=== PATIENT | female | born 1945 ===

== ENCOUNTER 2017-03-12 20:34 | Emergency (ER) | payer MEDICARE ==
[2017-03-12 20:34] VITALS: BMI 32.3
[2017-03-12 21:05] VITALS: BP 111/73; PULSE 80; RESP 18; TEMP 97.9; O2SAT 96
[2017-03-12] MEDS ORDERED: Iohexol 240 (50 ml) PO ONE (21:54)
[2017-03-12] MEDS ORDERED: Sodium Chloride 0.9% 1,000 ML IV STA (21:54)
--- NOTE | 2017-03-12 21:57 | ED PDOC ---
HPI: Abdomen Time Seen by Provider: 03/12/17 21:35 Chief Complaint (Nursing): Abdominal Pain Chief Complaint (Provider): abdominal pain History Per: Patient History/Exam Limitations: no limitations Onset/Duration Of Symptoms: Days (2) Current Symptoms Are (Timing): Still Present Location Of Pain/Discomfort: Diffuse Additional History Per: Patient Additional Complaint(s): 71 y/o female presents with diffuse abdominal pain x 2 days, worsening today. Patient reports multiple vomiting and diarrhea episodes, since resolved. Patient saw her PMD yesterday and was prescribed Ranitidine and Loperamide without improvement of pain. Denies fever, chest pain, shortness of breath, palpitations, urinary symptoms, recent travel, sick contacs Past Medical History Reviewed: Historical Data, Nursing Documentation, Vital Signs Vital Signs: Last Vital Signs Temp 97.9 F 03/12/17 20:59 Pulse 80 03/12/17 20:59 Resp 18 03/12/17 20:59 BP 111/73 03/12/17 20:59 Pulse Ox 96 03/12/17 21:57 - Medical History PMH: Anxiety, Arthritis (Osteoarthritis,), Depression, Gall Bladder Disease, Hypercholesterolemia, Migraine Denies: Asthma, Atrial Fibrillation, CHF, COPD, Diabetes, HTN, Chronic Kidney Disease - Surgical History Surgical History: Appendectomy, Cholecystectomy Denies: CABG, Pacemaker - Family History Family History: States: Unknown Family Hx Denies: CAD - Immunization History Hx Tetanus Toxoid Vaccination: No Hx Influenza Vaccination: No Hx Pneumococcal Vaccination: No - Home Medications Home Medications: Ambulatory Orders Medication Instructions Recorded Meclizine [Meclizine*] 25 mg PO Q12 06/17/13 Aspirin [Aspirin Chewable] 81 mg PO DAILY #0 chew 07/21/14 Alprazolam [Xanax] 0.25 mg PO PRN PRN 10/06/15 Escitalopram Oxalate [Escitalopram] 10 mg PO DAILY 10/06/15 Naproxen [Naprosyn] 500 mg PO Q12 10/06/15 Gabapentin [Neurontin] 300 mg PO TID 12/13/15 Metoprolol Succinate [Toprol XL] 25 mg PO DAILY 12/13/15 Pravastatin Sodium [Pravachol] 40 mg PO DAILY 12/13/15 Dicyclomine [Bentyl] 20 mg PO TID PRN #15 tab 03/13/17 - Allergies Allergies/Adverse Reactions: Allergies Allergy/AdvReac Type Severity Reaction Status Date / Time No Known Allergies Allergy Verified 03/12/17 20:59 Review of Systems ROS Statement: Except As Marked, All Systems Reviewed And Found Negative Gastrointestinal: Positive for: Abdominal Pain Physical Exam - Reviewed Nursing Documentation Reviewed: Yes Vital Signs Reviewed: Yes - Physical Exam Appears: Positive for: Well, Non-toxic, No Acute Distress Head Exam: Positive for: ATRAUMATIC, NORMAL INSPECTION, NORMOCEPHALIC Skin: Positive for: Normal Color Eye Exam: Positive for: Normal appearance ENT: Positive for: Normal ENT Inspection Cardiovascular/Chest: Positive for: Regular Rate, Rhythm Respiratory: Positive for: Normal Breath Sounds Gastrointestinal/Abdominal: Positive for: Bowel Sounds, Soft, Tenderness ( diffuse) Back: Positive for: Normal Inspection Extremity: Positive for: Normal ROM Neurologic/Psych: Positive for: Alert, Oriented - Laboratory Results Result Diagrams: 03/12/17 22:13 03/12/17 22:40 - ECG ECG: Positive for: Viewed By Me (reviewed by ED attending) ECG Rhythm: Positive for: Sinus Rhythm O2 Sat by Pulse Oximetry: 96 - Progress ED Course And Treament: labs, urine, CT abd/pelvis EXAM: CT Abdomen and Pelvis With Intravenous Contrast CLINICAL HISTORY: 71 years old, female; Pain; Abdominal pain; Generalized; Prior surgery; Surgery date: 6+ months; Surgery type: Gall bladder. Appendectomy; Additional info: Diffuse abd pain TECHNIQUE: Axial computed tomography images of the abdomen and pelvis with intravenous contrast. All CT scans at this facility use one or more dose reduction techniques, viz.: automated exposure control; ma/kV adjustment per patient size (including targeted exams where dose is matched to indication; i.e. head); or iterative reconstruction technique. Coronal and sagittal reformatted images were created and reviewed. CONTRAST: 90 mL of administered intravenously. COMPARISON: No relevant prior studies available. FINDINGS: Lower thorax: Minimal atelectasis/scarring. Small hiatal hernia. ABDOMEN: Liver: Unremarkable. No mass. Gallbladder and bile ducts: Cholecystectomy. Mild prominence of common bile duct. Pancreas: No ductal dilation. No mass. Spleen: No splenomegaly. Adrenals: No mass. Kidneys and ureters: No mass. No hydronephrosis. Stomach and bowel: No definite mural thickening. No obstruction. Appendix: No findings to suggest acute appendicitis. PELVIS: Bladder: Unremarkable. Reproductive: Unremarkable as visualized. ABDOMEN and PELVIS: Intraperitoneal space: No significant fluid collection. No free air Bones/joints: Degenerative changes of spine. No acute fracture. Soft tissues: Unremarkable. Vasculature: Mild atherosclerotic disease. No aneurysm. Lymph nodes: No pathologically enlarged lymph nodes. IMPRESSION: 1. No definite acute intraabdominal abnormality. 2. Incidental/non-acute findings are described above. Patient educated on findings, discharged with rx Bentyl. Advised fluids, bland diet. FOllow up PMD 2-3 days. Return precautions given. Disposition - Clinical Impression Clinical Impression: Gastroenteritis - Patient ED Disposition Is Patient to be Admitted: No Counseled Patient/Family Regarding: Studies Performed, Diagnosis, Need For Followup, Rx Given - Disposition Disposition: Routine/Home Disposition Time: 01:36 Condition: IMPROVED Prescriptions: Dicyclomine [Bentyl] 20 mg PO TID PRN #15 tab PRN Reason: Pain, Mild (1-3) Instructions: Gastroenteritis (ED) Forms: [employer] (Congolese) Print Language: THAI
[2017-03-12] MEDS ORDERED: Iohexol 240 (50 ml) ONE (22:22)
[2017-03-12 22:33] LABS: BASO % 0.5 % (0.0-2.0); EOS # 0.2 K/uL (0.0-0.7); EOS % 3.3 % (0.0-4.0); HEMOGLOBIN 14.3 g/dL (12.0-16.0); LYMPH # 1.5 K/uL (1.0-4.3); LYMPH % 25.3 % (20.0-40.0); MEAN CELL VOLUME 88.5 fl (81.0-99.0); MEAN CORPUSCULAR HEMOGLOBIN 30.1 pg (27.0-31.0); MEAN PLATELET VOLUME 7.8 fl (7.2-11.7); MONO # 0.4 K/uL (0.0-0.8); MONO % 7.3 % (0.0-10.0); NEUT # 3.8 K/uL (1.8-7.0); NEUT % 63.6 % (50.0-75.0); RBC 4.77 Mil/uL (3.80-5.20); RED CELL DISTRIBUTION WIDTH 13.3 % (11.5-14.5)
[2017-03-12 22:55] LABS: ALB/GLOB RATIO 1.1 (1.0-2.1); ALBUMIN 3.9 g/dL (3.5-5.0); ALT/SGPT 51 U/L (9-52); AST/SGOT 40 U/L (14-36); BLOOD UREA NITROGEN 16 mg/dl (7-17); CALCIUM 9.1 mg/dL (8.4-10.2); GFR AFRICAN-AMERICAN > 60; GFR NON-AFRICAN AMERICAN > 60; LIPASE 101 U/L (23-300)
[2017-03-12 23:40] LABS: SQUAMOUS EPITHIAL 2 /hpf (0-5); URINE BACTERIA RARE (<OCC); URINE BILIRUBIN NEGATIVE (NEGATIVE); URINE BLOOD NEGATIVE (NEGATIVE); URINE CLARITY SLIGHTY-CLOUDY (Clear); URINE COLOR YELLOW (YELLOW); URINE GLUCOSE (UA) NEG (Normal); URINE LEUKOCYTE ESTERASE TRACE Leu/uL (Negative); URINE NITRATE NEGATIVE (NEGATIVE); URINE PROTEIN NEGATIVE (NEGATIVE); URINE UROBILINOGEN 0.2-1.0 mg/dL (0.2-1.0)
[2017-03-13] MEDS ORDERED: Iohexol 300 100 ML IJ ONE (00:41)
[2017-03-13] MEDS ORDERED: Sodium Chloride 0.9% 50 ML IV ONE (00:41)
--- NOTE | 2017-03-13 01:21 | CT ---
EXAM: CT Abdomen and Pelvis With Intravenous Contrast CLINICAL HISTORY: 71 years old, female; Pain; Abdominal pain; Generalized; Prior surgery; Surgery date: 6+ months; Surgery type: Gall bladder. Appendectomy; Additional info: Diffuse abd pain TECHNIQUE: Axial computed tomography images of the abdomen and pelvis with intravenous contrast. All CT scans at this facility use one or more dose reduction techniques, viz.: automated exposure control; ma/kV adjustment per patient size (including targeted exams where dose is matched to indication; i.e. head); or iterative reconstruction technique. Coronal and sagittal reformatted images were created and reviewed. CONTRAST: 90 mL of [id number] administered intravenously. COMPARISON: No relevant prior studies available. FINDINGS: Lower thorax: Minimal atelectasis/scarring. Small hiatal hernia. ABDOMEN: Liver: Unremarkable. No mass. Gallbladder and bile ducts: Cholecystectomy. Mild prominence of common bile duct. Pancreas: No ductal dilation. No mass. Spleen: No splenomegaly. Adrenals: No mass. Kidneys and ureters: No mass. No hydronephrosis. Stomach and bowel: No definite mural thickening. No obstruction. Appendix: No findings to suggest acute appendicitis. PELVIS: Bladder: Unremarkable. Reproductive: Unremarkable as visualized. ABDOMEN and PELVIS: Intraperitoneal space: No significant fluid collection. No free air. Bones/joints: Degenerative changes of spine. No acute fracture. Soft tissues: Unremarkable. Vasculature: Mild atherosclerotic disease. No aneurysm. Lymph nodes: No pathologically enlarged lymph nodes. IMPRESSION: 1. No definite acute intraabdominal abnormality. 2. Incidental/non-acute findings are described above.
--- NOTE | 2017-03-13 16:29 | CARD ---
APPROVED REPORT EKG Measurement Heart [id number] <Conclusion> Normal sinus rhythm Normal ECG
== END 2017-03-13 02:08 | disposition home or self-care (01) ==
LOC: H.ER 20:34
DX: K52.9 Noninfective gastroenteritis and colitis, unspecified (principal); E78.00 Pure hypercholesterolemia, unspecified; Z86.59 Personal history of other mental and behavioral disorders; M19.90 Unspecified osteoarthritis, unspecified site
CPT/HCPCS: 74177; 80053; 81003; 83690; 85025; 93005; 96374; 99283; J7040; Q9966; Q9967

== ENCOUNTER 2018-06-13 08:07 | Observation (INO) | payer MEDICARE ==
[2018-06-13 08:13] VITALS: BMI 31.1
--- NOTE | 2018-06-13 08:48 | ED PDOC ---
HPI: Abdomen Additional Complaint(s): 72 y/o F w pmhx of HTN & hyperlipidemia presented with c/o subjective fever x 1 wk, and >10 episodes of nonbloody emesis since 3 am this morning accompanied by nausea, headache & dizziness. She reports decreased appetite x 2 days. She denied any sick contacts, diarrhea, cp or sob. PMH: HTN & hyperlipidemia Meds: unable to recall Allergie: NKA Famhx: denies Sochx: denies ROS: all points reviewed and are negative unless otherwise mentioned in HPI <Melida Yarbrough - Last Filed: 06/13/18 09:00> <True Gonzales - Last Filed: 06/13/18 13:06> Time Seen by Provider: 06/13/18 08:12 Chief Complaint (Nursing): Abdominal Pain Past Medical History Vital Signs: Last Vital Signs Temp 96.8 F L 06/13/18 08:13 Pulse 88 06/13/18 08:13 Resp 18 06/13/18 08:13 BP 160/102 H 06/13/18 08:13 Pulse Ox 99 06/13/18 08:13 - Medical History PMH: Anxiety, Arthritis (Osteoarthritis,), Depression, Gall Bladder Disease, HTN, Hypercholesterolemia, Migraine Denies: Asthma, Atrial Fibrillation, CHF, COPD, Diabetes, Chronic Kidney Disease - Surgical History Surgical History: Appendectomy, Cholecystectomy Denies: CABG, Pacemaker - Family History Family History: States: Unknown Family Hx Denies: CAD - Immunization History Hx Tetanus Toxoid Vaccination: No Hx Influenza Vaccination: Yes Hx Pneumococcal Vaccination: No <Melida Yarbrough - Last Filed: 06/13/18 09:00> Vital Signs: Last Vital Signs Temp 96.8 F L 06/13/18 08:13 Pulse 88 06/13/18 08:13 Resp 18 06/13/18 08:13 BP 160/102 H 06/13/18 08:13 Pulse Ox 99 06/13/18 09:05 <True Gonzales - Last Filed: 06/13/18 13:06> - Home Medications Home Medications: Ambulatory Orders Medication Instructions Recorded Meclizine [Meclizine*] 25 mg PO Q12 06/17/13 Aspirin [Aspirin Chewable] 81 mg PO DAILY #0 chew 07/21/14 Alprazolam [Xanax] 0.25 mg PO PRN PRN 10/06/15 Escitalopram Oxalate [Escitalopram] 10 mg PO DAILY 10/06/15 Naproxen [Naprosyn] 500 mg PO Q12 10/06/15 Gabapentin [Neurontin] 300 mg PO TID 12/13/15 Metoprolol Succinate XL [Toprol XL] 25 mg PO DAILY 12/13/15 Pravastatin Sodium [Pravachol] 40 mg PO DAILY 12/13/15 Dicyclomine [Bentyl] 20 mg PO TID PRN #15 tab 03/13/17 Dicyclomine [Dicyclomine HCl] 10 mg PO Q8 #10 cap 06/13/18 - Allergies Allergies/Adverse Reactions: Allergies Allergy/AdvReac Type Severity Reaction Status Date / Time No Known Allergies Allergy Verified 03/12/17 20:59 Physical Exam - Physical Exam Head Exam: Positive for: ATRAUMATIC, NORMAL INSPECTION Skin: Positive for: Warm Eye Exam: Positive for: PERRL ENT: Positive for: Other (mucous membranes dry) Neck: Positive for: Supple, Trachea Midline Cardiovascular/Chest: Positive for: Regular Rate, Rhythm. Negative for: Murmur Respiratory: Negative for: Crackles, Wheezing Gastrointestinal/Abdominal: Positive for: Bowel Sounds, Soft, Tenderness, Other (mild diffuse abdominal tenderness, no guarding, no rigidity, no rebound tend erness). Negative for: Guarding Neurological/Psych: Positive for: Awake, Alert, Age Appropriate <Melida Yarbrough - Last Filed: 06/13/18 09:00> - ECG O2 Sat by Pulse Oximetry: 99 <Melida Yarbrough - Last Filed: 06/13/18 09:00> - Laboratory Results Result Diagrams: 06/13/18 08:48 06/13/18 08:48 Lab Results: Total Bilirubin 0.9 mg/dl (0.2-1.3) 06/13/18 08:48 AST 51 U/L (14-36) H D 06/13/18 08:48 ALT 17 U/L (9-52) 06/13/18 08:48 Alkaline Phosphatase 84 U/L (38-126) 06/13/18 08:48 Total Protein 8.3 G/DL (6.3-8.2) H 06/13/18 08:48 Albumin 4.6 g/dL (3.5-5.0) 06/13/18 08:48 Globulin 3.7 gm/dL (2.2-3.9) 06/13/18 08:48 Albumin/Globulin Ratio 1.3 (1.0-2.1) 06/13/18 08:48 Lipase 104 U/L (23-300) 06/13/18 08:48 <True Gonzales - Last Filed: 06/13/18 13:06> Disposition <Melida Yarbrough - Last Filed: 06/13/18 09:00> - Patient ED Disposition Is Patient to be Admitted: No Counseled Patient/Family Regarding: Studies Performed, Diagnosis, Need For Followup, Rx Given - Disposition Disposition: Routine/Home Disposition Time: 13:05 <True Gonzales - Last Filed: 06/13/18 13:06> - Clinical Impression Clinical Impression: Abdominal pain, Colitis - Disposition Referrals: Stuart Jacome MD, PhD [Staff Provider] - Condition: FAIR Prescriptions: Dicyclomine [Dicyclomine HCl] 10 mg PO Q8 #10 cap Instructions: Colitis Forms: [employer] (Norwegian) Print Language: CHINESE
[2018-06-13] MEDS: Lactated Ringer's 1,000 ML IV SCH (08:55)
[2018-06-13 09:07] LABS: BASO % 0.2 % (0.0-2.0); BLOOD UREA NITROGEN 16 mg/dl (7-17); CALCIUM 9.6 mg/dL (8.4-10.2); EOS # 0.2 K/uL (0.0-0.7); EOS % 2.6 % (0.0-4.0); GFR NON-AFRICAN AMERICAN > 60; HEMOGLOBIN 15.1 g/dL (12.0-16.0); LIPASE 104 U/L (23-300); LYMPH # 1.3 K/uL (1.0-4.3); LYMPH % 19.9 % (20.0-40.0); MEAN CORPUSCULAR HEMOGLOBIN 30.4 pg (27.0-31.0); MEAN CORPUSCULAR HGB CONC 34.2 g/dL (33.0-37.0); MEAN PLATELET VOLUME 7.9 fl (7.2-11.7); MONO # 0.3 K/uL (0.0-0.8); MONO % 5.2 % (0.0-10.0); NEUT # 4.8 K/uL (1.8-7.0); NEUT % 72.1 % (50.0-75.0); NRBC % 0.1 % (0.0-0.0); RBC 4.95 Mil/uL (3.80-5.20); RED CELL DISTRIBUTION WIDTH 13.8 % (11.5-14.5); WHITE BLOOD COUNT 6.7 K/uL (4.8-10.8)
[2018-06-13 09:09] LABS: ALB/GLOB RATIO 1.3 (1.0-2.1); ALBUMIN 4.6 g/dL (3.5-5.0); ALT/SGPT 17 U/L (9-52); AST/SGOT 51 U/L (14-36)
[2018-06-13] MEDS ORDERED: Sodium Chloride 0.9% 50 ML IV ONE (11:09)
[2018-06-13] MEDS ORDERED: Iohexol 300 100 ML IJ ONE (11:09)
--- NOTE | 2018-06-13 12:59 | CT ---
Date of service: 06/13/2018 PROCEDURE: CT Abdomen and Pelvis with contrast HISTORY: Abdominal pain COMPARISON: 03/13/2017. TECHNIQUE: CT scan of the abdomen and pelvis was performed after administration of intravenous contrast. Oral contrast was not administered. Coronal and sagittal reformatted images were obtained. Contrast dose: 95 cc Omnipaque 300 Radiation dose: Total exam DLP = 951.17 mGy-cm. This CT exam was performed using one or more of the following dose reduction techniques: Automated exposure control, adjustment of the mA and/or kV according to patient size, and/or use of iterative reconstruction technique. FINDINGS: LOWER THORAX: There is subsegmental atelectasis in the lung bases, worse on the right. LIVER: Normal in size with homogeneous enhancement. No gross lesion or ductal dilatation. GALLBLADDER AND BILE DUCTS: Surgically absent. There is persistent mild dilatation of the common bile duct in keeping with post cholecystectomy status. PANCREAS: Normal in size with homogeneous enhancement. No gross lesion or ductal dilatation. SPLEEN: Normal in size and appearance. ADRENALS: No discrete nodule. KIDNEYS AND URETERS: Normal in size with homogeneous enhancement. No hydronephrosis. No solid mass. VASCULATURE: No aortic aneurysm. There are aortic atherosclerotic calcifications present. BOWEL: Evaluation of the bowel is limited in the absence of oral contrast. The small bowel loops are normal in caliber. There is segmental circumferential mural thickening in the splenic flexure with mild pericolonic inflammatory changes. There is moderate amount of stool scattered throughout the remaining colon. No bowel wall thickening or obstruction. APPENDIX: Normal appendix. PERITONEUM: No free fluid. No free air. LYMPH NODES: No enlarged lymph nodes. BLADDER: Well distended and normal in appearance. REPRODUCTIVE: The uterus is normal in size. BONES: No acute fracture. There is diffuse bone demineralization and multilevel degenerative changes. OTHER FINDINGS: There is a small sliding hiatal hernia is is. IMPRESSION: 1. Findings are most compatible with acute nonspecific infectious/inflammatory segmental colitis involving the splenic flexure of the colon. No evidence for bowel obstruction or perforation. 2. Small sliding hiatal hernia.
[2018-06-13] MEDS ORDERED: metroNIDAZOLE 500mg/100ml NS 100 ML IVPB STA (14:55)
[2018-06-13] MEDS ORDERED: metroNIDAZOLE 500mg/100ml NS 100 ML IVPB ONE (15:30)
[2018-06-13] MEDS ORDERED: cefTRIAXone (Rocephin) 1 gm Inj ONE (15:30)
--- NOTE | 2018-06-13 15:35 | CP.PCM.HP ---
<Pauline Templeton - Last Filed: 06/13/18 15:52> History of Present Illness - History of Present Illness History of Present Illness: 72 y/o F w pmhx of HTN & hyperlipidemia presented to [facility] ED with complaint of subjective fever for 8 days associated with generalized abdominal pain. She reports that since 3 am this morning she has been having Non-bloody emesis & dizziness. She reports decreased appetite. She had 1 day of diarrhea a few days ago- now resolved. She denied any sick contacts, diarrhea, chest pain, sob, dysuria, frequency and urgency. ROS: all points reviewed and are negative unless otherwise mentioned in HPI PMH: HTN & hyperlipidemia Meds: see med rec Medical history: Anxiety, Arthritis (Osteoarthritis,), Depression, Gall Bladder Disease, Hypercholesterolemia, Migraine Allergies: N.K.D.A. Surgical history: Appendectomy, Cholecystectomy Famhx: father from prostate cancer; Sochx: denies smoking history, alcohol use or illicit drug use. ED course: VS: T: 96.8 ; HR: 88; BP: 160/102 ; O2 Saturation: 99% room air - CBC: 6.7 > 15.1 / 44.1 < 221 - CMP: 140 / 5.1 ; 103/ 28 ; 16 / 0.6 ; 137 - AST/ALT: 51 / 17 ; Alk Phos: 84 ; Lipase: 104 - MEDS: Zofran 2mg IVP then 4 mg IVP , 1 Bolus of , Pepcid 2 IVP, - Lactated ringers @ maintaince of 125 mLs/ hr - CT pelvis: acute nonspecific infectious/inflammatory segmental colitis involving splenic flexure of the colon. No evidence for bowel obstruction or perforation. Present on Admission - Present on Admission Any Indicators Present on Admission: No Past Patient History - Past Medical History & Family History Past Medical History?: Yes - Past Social History Smoking Status: Never Smoked - CARDIAC Hx Atrial Fibrillation: No Hx Congestive Heart Failure: No Hx Hypercholesterolemia: Yes Hx Hypertension: Yes Hx Pacemaker: No - PULMONARY Hx Asthma: No Hx Chronic Obstructive Pulmonary Disease (COPD): No - NEUROLOGICAL Hx Migraine: Yes - HEENT Hx HEENT Problems: No - RENAL Hx Chronic Kidney Disease: No - ENDOCRINE/METABOLIC Hx Endocrine Disorders: No - HEMATOLOGICAL/ONCOLOGICAL Hx Blood Disorders: No - INTEGUMENTARY Hx Dermatological Problems: No - MUSCULOSKELETAL/RHEUMATOLOGICAL Hx Arthritis: Yes (Osteoarthritis,) - GASTROINTESTINAL Hx Gall Bladder Disease: Yes - GENITOURINARY/GYNECOLOGICAL Hx Genitourinary Disorders: No - PSYCHIATRIC Hx Anxiety: Yes Hx Depression: Yes - SURGICAL HISTORY Hx Appendectomy: Yes Hx Cholecystectomy: Yes Hx Coronary Artery Bypass Graft: No - ANESTHESIA Hx Anesthesia: Yes Hx Anesthesia Reactions: No Hx Malignant Hyperthermia: No Meds Allergies/Adverse Reactions: Allergies Allergy/AdvReac Type Severity Reaction Status Date / Time No Known Allergies Allergy Verified 03/12/17 20:59 Physical Exam - Constitutional Appears: Non-toxic, In Acute Distress Additional comments: Vomiting bilous - Head Exam Head Exam: NORMAL INSPECTION - Eye Exam Eye Exam: Normal appearance, PERRL - ENT Exam ENT Exam: Mucous Membranes Dry - Neck Exam Neck exam: Positive for: Normal Inspection - Respiratory Exam Respiratory Exam: Clear to Auscultation Bilateral, NORMAL BREATHING PATTERN. absent: Accessory Muscle Use, Chest Wall Tenderness, Decreased Breath Sounds, Prolonged Expiratory Phase, Rales, Rhonchi, Wheezes, Respiratory Distress, Stridor - Cardiovascular Exam Cardiovascular Exam: REGULAR RHYTHM, +S1, +S2 - GI/Abdominal Exam GI & Abdominal Exam: Normal Bowel Sounds, Soft, Tenderness (Generalized tenderness in all four quadrants). absent: Distended, Firm, Guarding, Mass, Rebound (Negative rovsings, negative psoas, no rebound tenderness), Rigid Additional comments: Midline lower abdominal scar; - Extremities Exam Extremities exam: Positive for: normal capillary refill, normal inspection, pedal pulses present (+2 doralis pedis and tibialis pulses present bilaterally.). Negative for: calf tenderness, pedal edema, tenderness - Back Exam Back exam: NORMAL INSPECTION. absent: CVA tenderness (L), CVA tenderness (R) - Neurological Exam Neurological exam: Alert, Oriented x3 - Psychiatric Exam Psychiatric exam: Normal Affect, Normal Mood - Skin Skin Exam: Dry, Intact, Normal Color, Warm Results - Vital Signs Recent Vital Signs: Last Vital Signs Temp 96.8 F L 06/13/18 08:13 Pulse 88 06/13/18 08:13 Resp 18 06/13/18 08:13 BP 160/102 H 06/13/18 08:13 Pulse Ox 99 06/13/18 09:05 - Labs Result Diagrams: 06/13/18 08:48 06/13/18 08:48 Labs: Laboratory Results - last 24 hr 06/13/18 06/13/18 08:48 08:48 WBC 6.7 RBC 4.95 Hgb 15.1 Hct 44.1 MCV 89.0 MCH 30.4 MCHC 34.2 RDW 13.8 Plt Count 221 MPV 7.9 Neut % (Auto) 72.1 Lymph % (Auto) 19.9 L [place] % (Auto) 5.2 Eos % (Auto) 2.6 Baso % (Auto) 0.2 Neut # (Auto) 4.8 Lymph # (Auto) 1.3 [place] # (Auto) 0.3 Eos # (Auto) 0.2 Baso # (Auto) 0.0 Sodium 140 Potassium 5.1 H Chloride 103 Carbon Dioxide 28 Anion Gap 14 BUN 16 Creatinine 0.6 L Est GFR ( Amer) > 60 Est GFR (Non-Af Amer) > 60 Random Glucose 137 H Calcium 9.6 Total Bilirubin 0.9 AST 51 H D ALT 17 Alkaline Phosphatase 84 Total Protein 8.3 H Albumin 4.6 Globulin 3.7 Albumin/Globulin Ratio 1.3 Lipase 104 Assessment & Plan (1) Infectious colitis Status: Acute - Assessment and Plan (Free Text) Assessment: 72 y/o F w pmhx of HTN & hyperlipidemia presented to [facility] ED with complaint of subjective fever for 8 days associated with generalized abdominal pain, found to have infectious colitis admitted for intractable vomiting. Plan: Infectious colitis - Admit to MED/ SURG - Afebrile - No leukocytosis - NPO - IVF @ 100mLs (D5W with NS) - Cipro 400mg Q12H and Flagyl 500mg IV Q8H (day 1) - Blood culture - Urinalysis - CT pelvis: acute nonspecific infectious/inflammatory segmental colitis involving splenic flexure of the colon. No evidence for bowel obstruction or perforation. Hypertension - Monitor at this time. Hyperkalemia - Repeat BMP DVT prophylaxis - Lovenox - SCD's <Atif Wynn D - Last Filed: 06/13/18 18:18> Results - Vital Signs Recent Vital Signs: Last Vital Signs Temp 98.5 F 06/13/18 12:00 Pulse 98 H 06/13/18 17:30 Resp 19 06/13/18 12:00 BP 162/90 H 06/13/18 17:30 Pulse Ox 99 06/13/18 12:00 - Labs Result Diagrams: 06/13/18 08:48 06/13/18 08:48 Labs: Laboratory Results - last 24 hr 06/13/18 06/13/18 08:48 08:48 WBC 6.7 RBC 4.95 Hgb 15.1 Hct 44.1 MCV 89.0 MCH 30.4 MCHC 34.2 RDW 13.8 Plt Count 221 MPV 7.9 Neut % (Auto) 72.1 Lymph % (Auto) 19.9 L [place] % (Auto) 5.2 Eos % (Auto) 2.6 Baso % (Auto) 0.2 Neut # (Auto) 4.8 Lymph # (Auto) 1.3 [place] # (Auto) 0.3 Eos # (Auto) 0.2 Baso # (Auto) 0.0 Sodium 140 Potassium 5.1 H Chloride 103 Carbon Dioxide 28 Anion Gap 14 BUN 16 Creatinine 0.6 L Est GFR ( Amer) > 60 Est GFR (Non-Af Amer) > 60 Random Glucose 137 H Calcium 9.6 Total Bilirubin 0.9 AST 51 H D ALT 17 Alkaline Phosphatase 84 Total Protein 8.3 H Albumin 4.6 Globulin 3.7 Albumin/Globulin Ratio 1.3 Lipase 104 Attending/Attestation - Attestation I have personally seen and examined this patient.: Yes I have fully participated in the care of the patient.: Yes I have reviewed all pertinent clinical information: Yes Notes (Text): 06/13/18 18:17 Patient seen and examined with resident. Case discussed and agreed with assessment and plan of management.
[2018-06-13] MEDS ORDERED: metroNIDAZOLE 500mg/100ml NS 100 ML IVPB SCH (17:00)
[2018-06-13] MEDS: Dextrose 5%/0.9% NS 1,000 ML IV SCH (18:10)
[2018-06-13 18:13] LABS: SQUAMOUS EPITHIAL < 1 /hpf (0-5); URINE BILIRUBIN NEGATIVE (NEGATIVE); URINE BLOOD NEGATIVE (NEGATIVE); URINE CLARITY CLEAR (Clear); URINE COLOR STRAW (YELLOW); URINE GLUCOSE (UA) NEG (NEGATIVE); URINE LEUKOCYTE ESTERASE NEG Leu/uL (Negative); URINE PROTEIN NEGATIVE (NEGATIVE); URINE UROBILINOGEN 0.2-1.0 mg/dL (0.2-1.0)
[2018-06-13] MEDS ORDERED: Naproxen 500 MG TAB PO SCH (21:00)
[2018-06-13] MEDS: Ciprofloxacin 400mg/200ml D5W 400 MG/200 ML BAG IVPB SCH (22:30)
[2018-06-14] MEDS: metroNIDAZOLE 500mg/100ml NS 100 ML IVPB SCH ×5 (00:01→22:04)
[2018-06-14] MEDS: Dextrose 5%/0.9% NS 1,000 ML IV SCH ×2 (02:32→12:00)
[2018-06-14 07:26] LABS: MEAN CELL VOLUME 90.6 fl (81.0-99.0); MEAN CORPUSCULAR HEMOGLOBIN 30.3 pg (27.0-31.0); MEAN CORPUSCULAR HGB CONC 33.4 g/dL (33.0-37.0); RBC 4.62 Mil/uL (3.80-5.20); RED CELL DISTRIBUTION WIDTH 13.7 % (11.5-14.5); WHITE BLOOD COUNT 6.6 K/uL (4.8-10.8)
[2018-06-14 08:36] LABS: BLOOD UREA NITROGEN 9 mg/dl (7-17); CALCIUM 8.3 mg/dL (8.4-10.2); GFR NON-AFRICAN AMERICAN > 60
[2018-06-14] MEDS ORDERED: Pravastatin Sodium 40 MG TAB PO SCH (09:00)
[2018-06-14] MEDS ORDERED: Enoxaparin 40 mg Syringe SC SCH (09:00)
[2018-06-14] MEDS: Lactated Ringer's 1,000 ML IV SCH ×3 (09:04→22:03)
--- NOTE | 2018-06-14 09:12 | CP.PCM.DIS ---
<Pauline Templeton - Last Filed: 06/14/18 11:16> Provider - Provider Date of Admission: 06/13/18 14:54 Attending physician: Atif Wynn MD Time Spent in preparation of Discharge (in minutes): 30 Diagnosis - Discharge Diagnosis (1) Infectious colitis Status: Acute Comment: CT pelvis: acute nonspecific infectious/inflammatory segmental colitis involving splenic flexure of the colon. No evidence for bowel obstruction or perforation. Afebrile; No leukocytosis. Patient was kept NPO then advanced diet and tolerated diet. Abx: Cipro 400mg Q12H and Flagyl 500mg IV Q8H (day 2) Hospital Course - Lab Results Lab Results: Most Recent Lab Values WBC 6.6 K/uL (4.8-10.8) 06/14/18 05:30 RBC 4.62 Mil/uL (3.80-5.20) 06/14/18 05:30 Hgb 14.0 g/dL (12.0-16.0) 06/14/18 05:30 Hct 41.8 % (34.0-47.0) 06/14/18 05:30 MCV 90.6 fl (81.0-99.0) 06/14/18 05:30 MCH 30.3 pg (27.0-31.0) 06/14/18 05:30 MCHC 33.4 g/dL (33.0-37.0) 06/14/18 05:30 RDW 13.7 % (11.5-14.5) 06/14/18 05:30 Plt Count 213 K/uL (130-400) 06/14/18 05:30 MPV 7.9 fl (7.2-11.7) 06/13/18 08:48 Neut % (Auto) 72.1 % (50.0-75.0) 06/13/18 08:48 Lymph % (Auto) 19.9 % (20.0-40.0) L 06/13/18 08:48 Nobles % (Auto) 5.2 % (0.0-10.0) 06/13/18 08:48 Eos % (Auto) 2.6 % (0.0-4.0) 06/13/18 08:48 Baso % (Auto) 0.2 % (0.0-2.0) 06/13/18 08:48 Neut # (Auto) 4.8 K/uL (1.8-7.0) 06/13/18 08:48 Lymph # (Auto) 1.3 K/uL (1.0-4.3) 06/13/18 08:48 Nobles # (Auto) 0.3 K/uL (0.0-0.8) 06/13/18 08:48 Eos # (Auto) 0.2 K/uL (0.0-0.7) 06/13/18 08:48 Baso # (Auto) 0.0 K/uL (0.0-0.2) 06/13/18 08:48 Sodium 139 mmol/l (132-148) 06/14/18 05:30 Potassium 3.1 MMOL/L (3.6-5.0) L 06/14/18 05:30 Chloride 104 mmol/L (98-107) 06/14/18 05:30 Carbon Dioxide 25 mmol/L (22-30) 06/14/18 05:30 Anion Gap 13 (10-20) 06/14/18 05:30 BUN 9 mg/dl (7-17) 06/14/18 05:30 Creatinine 0.6 mg/dl (0.7-1.2) L 06/14/18 05:30 Est GFR ( Amer) > 60 06/14/18 05:30 Est GFR (Non-Af Amer) > 60 06/14/18 05:30 POC Glucose (mg/dL) 132 mg/dL (65-110) H 06/13/18 22:27 Random Glucose 106 mg/dL (65-105) H 06/14/18 05:30 Calcium 8.3 mg/dL (8.4-10.2) L 06/14/18 05:30 Total Bilirubin 0.9 mg/dl (0.2-1.3) 06/13/18 08:48 AST 51 U/L (14-36) H D 06/13/18 08:48 ALT 17 U/L (9-52) 06/13/18 08:48 Alkaline Phosphatase 84 U/L (38-126) 06/13/18 08:48 Total Protein 8.3 G/DL (6.3-8.2) H 06/13/18 08:48 Albumin 4.6 g/dL (3.5-5.0) 06/13/18 08:48 Globulin 3.7 gm/dL (2.2-3.9) 06/13/18 08:48 Albumin/Globulin Ratio 1.3 (1.0-2.1) 06/13/18 08:48 Lipase 104 U/L (23-300) 06/13/18 08:48 Urine Color Straw (YELLOW) 06/13/18 18:00 Urine Clarity Clear (Clear) 06/13/18 18:00 Urine pH 8.0 (5.0-8.0) 06/13/18 18:00 Ur Specific [place] 1.030 (1.003-1.030) 06/13/18 18:00 Urine Protein Negative mg/dL (NEGATIVE) 06/13/18 18:00 Urine Glucose (UA) Neg mg/dL (NEGATIVE) 06/13/18 18:00 Urine Ketones Negative mg/dL (NEGATIVE) 06/13/18 18:00 Urine Blood Negative (NEGATIVE) 06/13/18 18:00 Urine Nitrate Negative (NEGATIVE) 06/13/18 18:00 Urine Bilirubin Negative (NEGATIVE) 06/13/18 18:00 Urine Urobilinogen 0.2-1.0 mg/dL (0.2-1.0) 06/13/18 18:00 Ur Leukocyte Esterase Neg Pascual/uL (Negative) 06/13/18 18:00 Urine RBC (Auto) 1 /hpf (0-3) 06/13/18 18:00 Urine Microscopic WBC < 1 /hpf (0-5) 06/13/18 18:00 Ur Squamous Epith Cells < 1 /hpf (0-5) 06/13/18 18:00 - Hospital Course Hospital Course: 72 y/o F w pmhx of HTN & hyperlipidemia presented to [facility] ED with complaint of subjective fever for 8 days associated with generalized abdominal pain admitted for intractable vomiting secondary to Infectious colitis found on CT scan. During her hospital stay, patient was afebrile and no leukocytosis; She was hemodynamically stable. Hypokalemia was replaced. She was kept NPO initially with IV fluid maintaince then advanced diet as tolerated. Antibiotics: Cipro and Flagyl. If patient tolerates PO intake, then could be discharged home. Discharge Exam - Head Exam Head Exam: NORMAL INSPECTION - Eye Exam Eye Exam: Normal appearance - ENT Exam ENT Exam: Mucous Membranes Moist - Neck Exam Neck exam: Normal Inspection - Respiratory Exam Respiratory Exam: Clear to PA & Lateral, NORMAL BREATHING PATTERN, UNREMARKABLE. absent: Accessory Muscle Use, Chest Wall Tenderness, Decreased Breath Sounds, Prolonged Expiratory Phase, Rales, Rhonchi, Wheezes, Respiratory Distress, Stridor - Cardiovascular Exam Cardiovascular Exam: REGULAR RHYTHM, +S1, +S2 - GI/Abdominal Exam GI & Abdominal Exam: Normal Bowel Sounds (Bowel sounds present in all four quadrants. ), Soft, Unremarkable. absent: Distended, Firm, Rebound, Rigid, Tenderness - Extremities Exam Extremities exam: normal capillary refill, normal inspection - Neurological Exam Neurological exam: Alert, Oriented x3 - Psychiatric Exam Psychiatric exam: Normal Affect, Normal Mood - Skin Skin Exam: Dry, Intact, Normal Color, Warm Discharge Plan - Discharge Medications Prescriptions: Ciprofloxacin HCl [Cipro] 500 mg PO Q12H 5 Days #10 tablet Metronidazole [Flagyl] 500 mg PO Q8H 5 Days #15 tab Ondansetron ODT [Zofran ODT] 4 mg PO Q6H 5 Days #20 odt - Follow Up Plan Condition: GOOD Disposition: HOME/ ROUTINE Patient education suggested?: Yes Instructions: Colitis Additional Instructions: F/U with PMD in 1 week. <Atif yWnn - Last Filed: 06/14/18 12:48> Provider - Provider Date of Admission: 06/13/18 14:54 Attending physician: Atif Wynn MD Hospital Course - Lab Results Lab Results: Most Recent Lab Values WBC 6.6 K/uL (4.8-10.8) 06/14/18 05:30 RBC 4.62 Mil/uL (3.80-5.20) 06/14/18 05:30 Hgb 14.0 g/dL (12.0-16.0) 06/14/18 05:30 Hct 41.8 % (34.0-47.0) 06/14/18 05:30 MCV 90.6 fl (81.0-99.0) 06/14/18 05:30 MCH 30.3 pg (27.0-31.0) 06/14/18 05:30 MCHC 33.4 g/dL (33.0-37.0) 06/14/18 05:30 RDW 13.7 % (11.5-14.5) 06/14/18 05:30 Plt Count 213 K/uL (130-400) 06/14/18 05:30 MPV 7.9 fl (7.2-11.7) 06/13/18 08:48 Neut % (Auto) 72.1 % (50.0-75.0) 06/13/18 08:48 Lymph % (Auto) 19.9 % (20.0-40.0) L 06/13/18 08:48 Nobles % (Auto) 5.2 % (0.0-10.0) 06/13/18 08:48 Eos % (Auto) 2.6 % (0.0-4.0) 06/13/18 08:48 Baso % (Auto) 0.2 % (0.0-2.0) 06/13/18 08:48 Neut # (Auto) 4.8 K/uL (1.8-7.0) 06/13/18 08:48 Lymph # (Auto) 1.3 K/uL (1.0-4.3) 06/13/18 08:48 Nobles # (Auto) 0.3 K/uL (0.0-0.8) 06/13/18 08:48 Eos # (Auto) 0.2 K/uL (0.0-0.7) 06/13/18 08:48 Baso # (Auto) 0.0 K/uL (0.0-0.2) 06/13/18 08:48 Sodium 139 mmol/l (132-148) 06/14/18 05:30 Potassium 3.1 MMOL/L (3.6-5.0) L 06/14/18 05:30 Chloride 104 mmol/L (98-107) 06/14/18 05:30 Carbon Dioxide 25 mmol/L (22-30) 06/14/18 05:30 Anion Gap 13 (10-20) 06/14/18 05:30 BUN 9 mg/dl (7-17) 06/14/18 05:30 Creatinine 0.6 mg/dl (0.7-1.2) L 06/14/18 05:30 Est GFR ( Amer) > 60 06/14/18 05:30 Est GFR (Non-Af Amer) > 60 06/14/18 05:30 POC Glucose (mg/dL) 132 mg/dL (65-110) H 06/13/18 22:27 Random Glucose 106 mg/dL (65-105) H 06/14/18 05:30 Calcium 8.3 mg/dL (8.4-10.2) L 06/14/18 05:30 Total Bilirubin 0.9 mg/dl (0.2-1.3) 06/13/18 08:48 AST 51 U/L (14-36) H D 06/13/18 08:48 ALT 17 U/L (9-52) 06/13/18 08:48 Alkaline Phosphatase 84 U/L (38-126) 06/13/18 08:48 Total Protein 8.3 G/DL (6.3-8.2) H 06/13/18 08:48 Albumin 4.6 g/dL (3.5-5.0) 06/13/18 08:48 Globulin 3.7 gm/dL (2.2-3.9) 06/13/18 08:48 Albumin/Globulin Ratio 1.3 (1.0-2.1) 06/13/18 08:48 Lipase 104 U/L (23-300) 06/13/18 08:48 Urine Color Straw (YELLOW) 06/13/18 18:00 Urine Clarity Clear (Clear) 06/13/18 18:00 Urine pH 8.0 (5.0-8.0) 06/13/18 18:00 Ur Specific [place] 1.030 (1.003-1.030) 06/13/18 18:00 Urine Protein Negative mg/dL (NEGATIVE) 06/13/18 18:00 Urine Glucose (UA) Neg mg/dL (NEGATIVE) 06/13/18 18:00 Urine Ketones Negative mg/dL (NEGATIVE) 06/13/18 18:00 Urine Blood Negative (NEGATIVE) 06/13/18 18:00 Urine Nitrate Negative (NEGATIVE) 06/13/18 18:00 Urine Bilirubin Negative (NEGATIVE) 06/13/18 18:00 Urine Urobilinogen 0.2-1.0 mg/dL (0.2-1.0) 06/13/18 18:00 Ur Leukocyte Esterase Neg Pascual/uL (Negative) 06/13/18 18:00 Urine RBC (Auto) 1 /hpf (0-3) 06/13/18 18:00 Urine Microscopic WBC < 1 /hpf (0-5) 06/13/18 18:00 Ur Squamous Epith Cells < 1 /hpf (0-5) 06/13/18 18:00 Attending/Attestation - Attestation I have personally seen and examined this patient.: Yes I have fully participated in the care of the patient.: Yes I have reviewed all pertinent clinical information, including history, physical exam and plan: Yes Notes (Text): 06/14/18 12:43 Patient seen and examined with resident. Case discussed and agreed with assessment. Patient had one episode of vomiting as per RN but otherwise stable for discharge. Advised to continue full liquid diet at home and take Zofran 8mg PO q 8hrs as needed.
[2018-06-14] MEDS ORDERED: Potassium Chloride 20 mEq ER Tab PO ONE (09:13)
[2018-06-14] MEDS ORDERED: Potassium Chloride 20 mEq 100 ML IVPB ONE ×2 (10:30→10:31)
[2018-06-14] MEDS: Metoprolol Succinate 25 mg XL Tab PO SCH (10:34)
[2018-06-14] MEDS: Ciprofloxacin 400mg/200ml D5W 400 MG/200 ML BAG IVPB SCH ×2 (10:38→21:51)
--- NOTE | 2018-06-14 21:13 | CP.PCM.PCO ---
Assessment & Plan - Assessment and Plan (Free Text) Assessment: Moments prior to discharge, pt had profuse vomiting episodes as she was walking to wheelchair, reported severe headache. BP at this time was 180 systolic. Assessed pt at bedside. Pt appeared uncomfortable, abdomen was soft and non tender. Pt was given Zofran, Meclizine, and Tylenol. Re-assessed an hour later and had subsequent repeated episodes of vomiting as per RN. Decision made to d/c discharge order and keep patient here due to intractable vomiting and inability to tolerate fluids. Eleaonr Lafleur, PGY2
[2018-06-14] MEDS ORDERED: Metoprolol Succinate 25 mg XL Tab PO ONE (21:30)
[2018-06-15] MEDS: Lactated Ringer's 1,000 ML IV SCH ×3 (04:48→17:34)
[2018-06-15] MEDS: Metoprolol Succinate 25 mg XL Tab PO SCH (08:58)
[2018-06-15] MEDS: metroNIDAZOLE 500mg/100ml NS 100 ML IVPB SCH ×3 (09:00→22:23)
[2018-06-15] MEDS: Ciprofloxacin 400mg/200ml D5W 400 MG/200 ML BAG IVPB SCH ×2 (10:01→11:00)
[2018-06-15 11:10] LABS: BLOOD UREA NITROGEN 9 mg/dl (7-17); CALCIUM 9.4 mg/dL (8.4-10.2); GFR NON-AFRICAN AMERICAN > 60
[2018-06-15] MEDS ORDERED: Magnesium Sulfate 2 gm/50 ml 2 GM/50 ML BAG IVPB ONE (12:59)
--- NOTE | 2018-06-15 13:01 | CP.PCM.PN ---
<Francisco Linton - Last Filed: 06/15/18 13:17> Subjective - Date & Time of Evaluation Date of Evaluation: 06/15/18 Time of Evaluation: 10:40 - Subjective Subjective: Patient seen at bedside am and at noon. C/o persistent nausea, dizziness and now worsening headaches. Denies diarrhea, SOB, CP. No vomiting since last night. Patient couldnt be DC last night after episode of vomiting while transferred to and c/o dizziness. Patient encouraged to drink liquid this AM but is reluctant to eat/drink because of afraid of vomiting, she admits depression but denies SI, HI, domestic violence. Patient states she doesnt want to be admitted to psych unit. She admits hx of migraines/headaches for what she usually takes excedrin at home. She states that she was taking all her psych meds as home. Objective - Vital Signs/Intake and Output Vital Signs (last 24 hours): Temp Pulse Resp BP Pulse Ox 98.1 F 71 20 176/89 H 94 L 06/15/18 08:09 06/15/18 08:58 06/15/18 08:09 06/15/18 08:58 06/15/18 08:09 - Medications Medications: Current Medications Acetaminophen (Tylenol 650 Mg Supp) 650 mg NM ONCE PRN PRN Reason: Pain, moderate (4-7) Last Admin: 06/15/18 12:46 Dose: 650 mg Alprazolam (Xanax) 0.25 mg PO HS PRN PRN Reason: Anxiety Stop: 06/20/18 15:41 Last Admin: 06/14/18 21:50 Dose: 0.25 mg Enoxaparin Sodium (Lovenox) 40 mg SC DAILY@1700 RUBEN; Protocol Escitalopram Oxalate (Lexapro) 10 mg PO DAILY [facility] Last Admin: 06/15/18 08:58 Dose: 10 mg Famotidine (Pepcid) 20 mg IVP DAILY [facility] Last Admin: 06/15/18 08:59 Dose: 20 mg Lactated Ringer's (Lactated Ringer's) 1,000 mls @ 125 mls/hr IV .Q8H [facility] Last Admin: 06/15/18 04:48 Dose: 125 mls/hr Ciprofloxacin (Cipro 400mg/200ml Dsw) 400 mg in 200 mls @ 200 mls/hr IVPB Q12 [facility]EN; Protocol Last Admin: 06/15/18 10:01 Dose: 200 mls/hr Metronidazole (Flagyl 500mg/100ml Ns) 100 mls @ 100 mls/hr IVPB Q8@0700,1500,2300 RUBEN; Protocol Last Admin: 06/15/18 09:00 Dose: 100 mls/hr Potassium Chloride (Potassium Chloride 20 Meq/100 Ml) 100 mls @ 50 mls/hr IVPB Q2 RUBEN Stop: 06/15/18 15:59 Magnesium Sulfate (Magnesium Sulfate 2 Gm/50 Ml Water) 2 gm in 50 mls @ 50 mls/hr IVPB ONCE ONE Stop: 06/15/18 13:58 Meclizine HCl (Antivert) 25 mg PO Q12 [facility] Last Admin: 06/15/18 12:46 Dose: 25 mg Metoprolol Succinate (Toprol Xl) 25 mg PO DAILY [facility] Last Admin: 06/15/18 08:58 Dose: 25 mg Prochlorperazine (Compazine) 10 mg PO Q6 PRN PRN Reason: Nausea/Vomiting - Labs Labs: 06/14/18 05:30 06/15/18 10:45 - Constitutional Appears: Non-toxic, In Acute Distress (Headache/dizziness) - Eye Exam Eye Exam: EOMI, PERRL - ENT Exam ENT Exam: Mucous Membranes Moist - Respiratory Exam Respiratory Exam: Clear to Ausculation Bilateral, NORMAL BREATHING PATTERN. absent: Respiratory Distress - Cardiovascular Exam Cardiovascular Exam: REGULAR RHYTHM, +S1, +S2. absent: Gallop - GI/Abdominal Exam GI & Abdominal Exam: Soft, Normal Bowel Sounds - Extremities Exam Extremities Exam: absent: Calf Tenderness, Pedal Edema - Neurological Exam Neurological Exam: Alert, Awake, Oriented x3 - Psychiatric Exam Psychiatric exam: Depressed. absent: Normal Mood - Skin Skin Exam: Normal Color, Warm Assessment and Plan - Assessment and Plan (Free Text) Assessment: 72 y/o F w pmhx of HTN & hyperlipidemia presented to [facility] ED with complaint of subjective fever for 8 days associated with generalized abdominal pain, found to have infectious colitis admitted for intractable vomiting. Plan: Intractable vomiting/headaches/Dizziness -Likely migraines -Afebrile no neck rigidity no meningeal signs -On zofran q6 scheduled -On Tylenol NM PRN -Encouraged to try liquid diet for lunch -Encouraged to get OOB -Start compazine PRN -Unsafe to administer Triptans due to psych meds -Magnesium Sulfate 2g IV once for migraines -C/w Metoprolol 25 mg daily -Restart Meclizine BID -VS stable Infectious colitis - Afebrile - No leukocytosis -Advance to liquid diet and as tolerated - Cipro 400mg Q12H and Flagyl 500mg IV Q8H (day 1) Depression -Chronic -C/w Lexapro -Will consider Psych consult -No currently SI or HI Hypertension -Slightly elevated SBP, Monitor at this time. Hypokalemia -Likelydue to poor po intake, diarrhea, vomiting -Replace K DVT prophylaxis - Lovenox - SCD's <Atif Wynn D - Last Filed: 06/15/18 13:41> Objective - Vital Signs/Intake and Output Vital Signs (last 24 hours): Temp Pulse Resp BP Pulse Ox 98.1 F 71 20 176/89 H 94 L 06/15/18 08:09 06/15/18 08:58 06/15/18 08:09 06/15/18 08:58 06/15/18 08:09 - Medications Medications: Current Medications Acetaminophen (Tylenol 650 Mg Supp) 650 mg NM ONCE PRN PRN Reason: Pain, moderate (4-7) Last Admin: 06/15/18 12:46 Dose: 650 mg Alprazolam (Xanax) 0.25 mg PO HS PRN PRN Reason: Anxiety Stop: 06/20/18 15:41 Last Admin: 06/14/18 21:50 Dose: 0.25 mg Enoxaparin Sodium (Lovenox) 40 mg SC DAILY@1700 RUBEN; Protocol Escitalopram Oxalate (Lexapro) 10 mg PO DAILY [facility] Last Admin: 06/15/18 08:58 Dose: 10 mg Famotidine (Pepcid) 20 mg IVP DAILY [facility] Last Admin: 06/15/18 08:59 Dose: 20 mg Lactated Ringer's (Lactated Ringer's) 1,000 mls @ 125 mls/hr IV .Q8H [facility] Last Admin: 06/15/18 04:48 Dose: 125 mls/hr Metronidazole (Flagyl 500mg/100ml Ns) 100 mls @ 100 mls/hr IVPB Q8@0700,1500,2300 RUBEN; Protocol Last Admin: 06/15/18 09:00 Dose: 100 mls/hr Potassium Chloride (Potassium Chloride 20 Meq/100 Ml) 100 mls @ 50 mls/hr IVPB Q2 [facility] Stop: 06/15/18 15:59 Magnesium Sulfate (Magnesium Sulfate 2 Gm/50 Ml Water) 2 gm in 50 mls @ 50 mls/hr IVPB ONCE ONE Stop: 06/15/18 13:58 Meclizine HCl (Antivert) 25 mg PO Q12 [facility] Last Admin: 06/15/18 12:46 Dose: 25 mg Prochlorperazine (Compazine) 10 mg IVP Q6 PRN PRN Reason: Nausea/Vomiting - Labs Labs: 06/14/18 05:30 06/15/18 10:45 Attending/Attestation - Attestation I have personally seen and examined this patient.: Yes I have fully participated in the care of the patient.: Yes I have reviewed all pertinent clinical information, including history, physical exam and plan: Yes Notes (Text): 06/15/18 13:39 Patient seen and examined with resident. Continued to complain of nausea and vomiting and headache. DC was held yesterday. We will start treating patient for migraine.
[2018-06-15] MEDS ORDERED: Enoxaparin 40 mg Syringe SC SCH (17:00)
[2018-06-15] MEDS: Potassium Chloride 20 mEq 100 ML IVPB SCH ×2 (18:31→20:23)
[2018-06-16] MEDS: Lactated Ringer's 1,000 ML IV SCH ×2 (01:47→01:48)
[2018-06-16 07:23] LABS: BLOOD UREA NITROGEN 13 mg/dl (7-17); CALCIUM 9.2 mg/dL (8.4-10.2); GFR NON-AFRICAN AMERICAN > 60
[2018-06-16] MEDS ORDERED: Potassium Chloride 20 mEq ER Tab PO ONE (07:57)
--- NOTE | 2018-06-16 08:20 | CP.PCM.DIS ---
<Pauline Templeton - Last Filed: 06/16/18 09:43> Provider - Provider Date of Admission: 06/15/18 22:56 Attending physician: Atif Wynn MD Time Spent in preparation of Discharge (in minutes): 30 Diagnosis - Discharge Diagnosis (1) Infectious colitis Status: Acute Hospital Course - Lab Results Lab Results: Micro Results 06/13/18 16:10 Blood-Venous Blood Culture - Preliminary NO GROWTH AFTER 48 HOURS Most Recent Lab Values WBC 6.6 K/uL (4.8-10.8) 06/14/18 05:30 RBC 4.62 Mil/uL (3.80-5.20) 06/14/18 05:30 Hgb 14.0 g/dL (12.0-16.0) 06/14/18 05:30 Hct 41.8 % (34.0-47.0) 06/14/18 05:30 MCV 90.6 fl (81.0-99.0) 06/14/18 05:30 MCH 30.3 pg (27.0-31.0) 06/14/18 05:30 MCHC 33.4 g/dL (33.0-37.0) 06/14/18 05:30 RDW 13.7 % (11.5-14.5) 06/14/18 05:30 Plt Count 213 K/uL (130-400) 06/14/18 05:30 MPV 7.9 fl (7.2-11.7) 06/13/18 08:48 Neut % (Auto) 72.1 % (50.0-75.0) 06/13/18 08:48 Lymph % (Auto) 19.9 % (20.0-40.0) L 06/13/18 08:48 [place] % (Auto) 5.2 % (0.0-10.0) 06/13/18 08:48 Eos % (Auto) 2.6 % (0.0-4.0) 06/13/18 08:48 Baso % (Auto) 0.2 % (0.0-2.0) 06/13/18 08:48 Neut # (Auto) 4.8 K/uL (1.8-7.0) 06/13/18 08:48 Lymph # (Auto) 1.3 K/uL (1.0-4.3) 06/13/18 08:48 [place] # (Auto) 0.3 K/uL (0.0-0.8) 06/13/18 08:48 Eos # (Auto) 0.2 K/uL (0.0-0.7) 06/13/18 08:48 Baso # (Auto) 0.0 K/uL (0.0-0.2) 06/13/18 08:48 Sodium 139 mmol/l (132-148) 06/16/18 06:30 Potassium 3.0 MMOL/L (3.6-5.0) L 06/16/18 06:30 Chloride 99 mmol/L (98-107) 06/16/18 06:30 Carbon Dioxide 30 mmol/L (22-30) 06/16/18 06:30 Anion Gap 13 (10-20) 06/16/18 06:30 BUN 13 mg/dl (7-17) 06/16/18 06:30 Creatinine 0.8 mg/dl (0.7-1.2) 06/16/18 06:30 Est GFR ( Amer) > 60 06/16/18 06:30 Est GFR (Non-Af Amer) > 60 06/16/18 06:30 POC Glucose (mg/dL) 132 mg/dL (65-110) H 06/13/18 22:27 Random Glucose 95 mg/dL (65-105) 06/16/18 06:30 Calcium 9.2 mg/dL (8.4-10.2) 06/16/18 06:30 Total Bilirubin 0.9 mg/dl (0.2-1.3) 06/13/18 08:48 AST 51 U/L (14-36) H D 06/13/18 08:48 ALT 17 U/L (9-52) 06/13/18 08:48 Alkaline Phosphatase 84 U/L (38-126) 06/13/18 08:48 Total Protein 8.3 G/DL (6.3-8.2) H 06/13/18 08:48 Albumin 4.6 g/dL (3.5-5.0) 06/13/18 08:48 Globulin 3.7 gm/dL (2.2-3.9) 06/13/18 08:48 Albumin/Globulin Ratio 1.3 (1.0-2.1) 06/13/18 08:48 Lipase 104 U/L (23-300) 06/13/18 08:48 Urine Color Straw (YELLOW) 06/13/18 18:00 Urine Clarity Clear (Clear) 06/13/18 18:00 Urine pH 8.0 (5.0-8.0) 06/13/18 18:00 Ur Specific [place] 1.030 (1.003-1.030) 06/13/18 18:00 Urine Protein Negative mg/dL (NEGATIVE) 06/13/18 18:00 Urine Glucose (UA) Neg mg/dL (NEGATIVE) 06/13/18 18:00 Urine Ketones Negative mg/dL (NEGATIVE) 06/13/18 18:00 Urine Blood Negative (NEGATIVE) 06/13/18 18:00 Urine Nitrate Negative (NEGATIVE) 06/13/18 18:00 Urine Bilirubin Negative (NEGATIVE) 06/13/18 18:00 Urine Urobilinogen 0.2-1.0 mg/dL (0.2-1.0) 06/13/18 18:00 Ur Leukocyte Esterase Neg [place]/uL (Negative) 06/13/18 18:00 Urine RBC (Auto) 1 /hpf (0-3) 06/13/18 18:00 Urine Microscopic WBC < 1 /hpf (0-5) 06/13/18 18:00 Ur Squamous Epith Cells < 1 /hpf (0-5) 06/13/18 18:00 - Hospital Course Hospital Course: 72 y/o F w pmhx of HTN & hyperlipidemia presented to [facility] ED with complaint of subjective fever for 8 days associated with generalized abdominal pain admitted for intractable vomiting secondary to Infectious colitis found on CT scan. During her hospital stay, patient was afebrile and no leukocytosis; She was hemodynamically stable. Hypokalemia was replaced. She was kept NPO initially with IV fluid maintaince then advanced diet as tolerated. Antibiotics: Cipro and Flagyl. Patient was to be discharged 06/14/18 but prior to discharge, pt had profuse vomiting episodes as she was walking to wheelchair, reported severe headache at that time (was given Zofran, Meclizine, and Tylenol). Patient stayed to manage headache and intractable vomiting. Patient was able to tolerate liquid diet and was advanced to soft diet. Discharge Exam - Head Exam Head Exam: NORMAL INSPECTION - Eye Exam Eye Exam: Normal appearance - Neck Exam Neck exam: Normal Inspection - Respiratory Exam Respiratory Exam: Clear to PA & Lateral, NORMAL BREATHING PATTERN, UNREMARKABLE. absent: Accessory Muscle Use, Chest Wall Tenderness, Decreased Breath Sounds, Prolonged Expiratory Phase, Rales, Rhonchi, Wheezes, Respiratory Distress, Stridor - Cardiovascular Exam Cardiovascular Exam: REGULAR RHYTHM, +S1, +S2 - GI/Abdominal Exam GI & Abdominal Exam: Normal Bowel Sounds, Soft, Unremarkable. absent: Distended, Firm, Mass, Rebound, Rigid, Tenderness - Extremities Exam Extremities exam: normal capillary refill, normal inspection, pedal pulses present (+2 dorsalis pedis and tibialis posterior. ) - Neurological Exam Neurological exam: Alert, Oriented x3 - Psychiatric Exam Psychiatric exam: Normal Affect, Normal Mood - Skin Skin Exam: Dry, Intact, Normal Color, Warm Discharge Plan - Discharge Medications Prescriptions: Ciprofloxacin HCl [Cipro] 500 mg PO Q12H 5 Days #10 tablet Metronidazole [Flagyl] 500 mg PO Q8H 5 Days #15 tab Ondansetron ODT [Zofran ODT] 4 mg PO Q6H 5 Days #20 odt - Follow Up Plan Condition: GOOD Disposition: HOME/ ROUTINE Patient education suggested?: Yes Instructions: Colitis, Acute Abdominal Pain (DC) Additional Instructions: hacer karlo con roche primario dentro de 1 semana Discharge instructions given in [place]ic using Hithru # [id number] Krystin Referrals: [facility] [Outside] <Ching Lazcano - Last Filed: 06/16/18 10:08> Provider - Provider Date of Admission: 06/15/18 22:56 Attending physician: Atif Wynn MD Hospital Course - Lab Results Lab Results: Micro Results 06/13/18 16:10 Blood-Venous Blood Culture - Preliminary NO GROWTH AFTER 48 HOURS Most Recent Lab Values WBC 6.6 K/uL (4.8-10.8) 06/14/18 05:30 RBC 4.62 Mil/uL (3.80-5.20) 06/14/18 05:30 Hgb 14.0 g/dL (12.0-16.0) 06/14/18 05:30 Hct 41.8 % (34.0-47.0) 06/14/18 05:30 MCV 90.6 fl (81.0-99.0) 06/14/18 05:30 MCH 30.3 pg (27.0-31.0) 06/14/18 05:30 MCHC 33.4 g/dL (33.0-37.0) 06/14/18 05:30 RDW 13.7 % (11.5-14.5) 06/14/18 05:30 Plt Count 213 K/uL (130-400) 06/14/18 05:30 MPV 7.9 fl (7.2-11.7) 06/13/18 08:48 Neut % (Auto) 72.1 % (50.0-75.0) 06/13/18 08:48 Lymph % (Auto) 19.9 % (20.0-40.0) L 06/13/18 08:48 [place] % (Auto) 5.2 % (0.0-10.0) 06/13/18 08:48 Eos % (Auto) 2.6 % (0.0-4.0) 06/13/18 08:48 Baso % (Auto) 0.2 % (0.0-2.0) 06/13/18 08:48 Neut # (Auto) 4.8 K/uL (1.8-7.0) 06/13/18 08:48 Lymph # (Auto) 1.3 K/uL (1.0-4.3) 06/13/18 08:48 [place] # (Auto) 0.3 K/uL (0.0-0.8) 06/13/18 08:48 Eos # (Auto) 0.2 K/uL (0.0-0.7) 06/13/18 08:48 Baso # (Auto) 0.0 K/uL (0.0-0.2) 06/13/18 08:48 Sodium 139 mmol/l (132-148) 06/16/18 06:30 Potassium 3.0 MMOL/L (3.6-5.0) L 06/16/18 06:30 Chloride 99 mmol/L (98-107) 06/16/18 06:30 Carbon Dioxide 30 mmol/L (22-30) 06/16/18 06:30 Anion Gap 13 (10-20) 06/16/18 06:30 BUN 13 mg/dl (7-17) 06/16/18 06:30 Creatinine 0.8 mg/dl (0.7-1.2) 06/16/18 06:30 Est GFR ( Amer) > 60 06/16/18 06:30 Est GFR (Non-Af Amer) > 60 06/16/18 06:30 POC Glucose (mg/dL) 132 mg/dL (65-110) H 06/13/18 22:27 Random Glucose 95 mg/dL (65-105) 06/16/18 06:30 Calcium 9.2 mg/dL (8.4-10.2) 06/16/18 06:30 Total Bilirubin 0.9 mg/dl (0.2-1.3) 06/13/18 08:48 AST 51 U/L (14-36) H D 06/13/18 08:48 ALT 17 U/L (9-52) 06/13/18 08:48 Alkaline Phosphatase 84 U/L (38-126) 06/13/18 08:48 Total Protein 8.3 G/DL (6.3-8.2) H 06/13/18 08:48 Albumin 4.6 g/dL (3.5-5.0) 06/13/18 08:48 Globulin 3.7 gm/dL (2.2-3.9) 06/13/18 08:48 Albumin/Globulin Ratio 1.3 (1.0-2.1) 06/13/18 08:48 Lipase 104 U/L (23-300) 06/13/18 08:48 Urine Color Straw (YELLOW) 06/13/18 18:00 Urine Clarity Clear (Clear) 06/13/18 18:00 Urine pH 8.0 (5.0-8.0) 06/13/18 18:00 Ur Specific [place] 1.030 (1.003-1.030) 06/13/18 18:00 Urine Protein Negative mg/dL (NEGATIVE) 06/13/18 18:00 Urine Glucose (UA) Neg mg/dL (NEGATIVE) 06/13/18 18:00 Urine Ketones Negative mg/dL (NEGATIVE) 06/13/18 18:00 Urine Blood Negative (NEGATIVE) 06/13/18 18:00 Urine Nitrate Negative (NEGATIVE) 06/13/18 18:00 Urine Bilirubin Negative (NEGATIVE) 06/13/18 18:00 Urine Urobilinogen 0.2-1.0 mg/dL (0.2-1.0) 06/13/18 18:00 Ur Leukocyte Esterase Neg [place]/uL (Negative) 06/13/18 18:00 Urine RBC (Auto) 1 /hpf (0-3) 06/13/18 18:00 Urine Microscopic WBC < 1 /hpf (0-5) 06/13/18 18:00 Ur Squamous Epith Cells < 1 /hpf (0-5) 06/13/18 18:00 Attending/Attestation - Attestation I have personally seen and examined this patient.: Yes I have fully participated in the care of the patient.: Yes I have reviewed all pertinent clinical information, including history, physical exam and plan: Yes Notes (Text): 06/16/18 10:07 agree with findings and plan as above. complete abx for colitis. follow up PCP, wil for nausea. stable for dc home.
[2018-06-16] MEDS: Potassium Chloride 20 mEq 100 ML IVPB SCH ×2 (08:37→13:56)
[2018-06-16] MEDS: metroNIDAZOLE 500mg/100ml NS 100 ML IVPB SCH (08:43)
[2018-06-16 16:30] VITALS: BP 109/60; PULSE 68; RESP 20; TEMP 97.4; O2SAT 94
== END 2018-06-16 13:00 | disposition home or self-care (01) ==
LOC: H.ER 08:07 → H.ERHOLD 14:54 → UNDOADMOB 14:54 → H.MEDSURG1 18:50 → H.ERHOLD 18:50 → OBSVTOIN 22:56 → INTOOBSV 22:56 → H.ERHOLD 06-15 22:56 → OBSVTOIN 06-15 22:56 → UNDOADMOB 06-15 22:56 → H.MEDSURG1 06-15 22:56 → UNDODISOB 06-16 17:15
DX: A09 Infectious gastroenteritis and colitis, unspecified (principal); E78.00 Pure hypercholesterolemia, unspecified; E78.5 Hyperlipidemia, unspecified; E87.6 Hypokalemia; F32.9 Major depressive disorder, single episode, unspecified; G43.909 Migraine, unspecified, not intractable, without status migrainosus; I10 Essential (primary) hypertension; Z79.82 Long term (current) use of aspirin; F41.9 Anxiety disorder, unspecified; K82.9 Disease of gallbladder, unspecified; M19.90 Unspecified osteoarthritis, unspecified site; Z79.899 Other long term (current) drug therapy
CPT/HCPCS: 36415; 74177; 80048; 80053; 81003; 82948; 83690; 85025; 85027; 87040; 96361; 96365; 96366; 96367; 96372; 96375; 96376; 99285; G0378; J0360; J0696; J0744; J1650; J1885; J2405; J2765; J3480; J7042; J7120; Q9967